=== PATIENT | male | born 1980 | race Caucasian/White ===

== ENCOUNTER 2016-09-01 10:35 | Day surgery (SDC) | payer BC ==
[2016-08-31 16:23] VITALS: BMI 34.4
[~2016-09-01] VITALS: Ht 180.3 cm; Wt 111.7 kg
[2016-09-01] VITALS (15 sets, daily range): BP systolic 107–128; BP diastolic 66–74; PULSE 56–74; RESP 12–23; Ht 180.3 cm; Wt 111.7 kg
[~2016-09-01 10:35] MED LIST: CEFAZOLIN 2 GM/50 ML (PMX) 50 ML IVPB SCH; LIDOCAINE 2% (SDV) 5 ML INJ ONE; SOD CHLORIDE 0.9% 1,000 ML IV SCH; SUCCINYLCHOLINE CHLORIDE 100 MG/5 ML SYG IV ONE
[2016-09-01 11:32] LABS: ADD SCAN DIFF NO
[2016-09-01 11:39] LABS: BASOPHILS % 0.3 % (0.0-2.0); EOSINOPHILS # 0.3 10^3/ul (0.0-0.5); EOSINOPHILS % 4.3 % (0.0-7.0); HEMATOCRIT 44.5 % (42.0-52.0); LYMPHOCYTES # 2.4 10^3/ul (0.8-2.9); LYMPHOCYTES % 35.2 % (15.0-51.0); MEAN CORPUSCULAR HEMOGLOBIN 30.4 pg (29.0-33.0); MEAN CORPUSCULAR HGB CONC 33.7 g/dl (32.0-37.0); MEAN CORPUSCULAR VOLUME 90.1 fl (82.0-101.0); MEAN PLATELET VOLUME 9.3 fl (7.4-10.4); MONOCYTE # 0.4 10^3/ul (0.3-0.9); MONOCYTES % 6.4 % (0.0-11.0); NEUTROPHIL # 3.6 10^3/ul (1.6-7.5); NEUTROPHILS % 53.7 % (39.0-77.0); PLATELET COUNT 266 10^3/UL (140-415); RED BLOOD COUNT 4.94 10^6/ul (4.70-6.10); RED CELL DISTRIBUTION WIDTH 13.2 % (11.5-14.5); WHITE BLOOD COUNT 6.7 10^3/ul (4.8-10.8)
[2016-09-01] MEDS ORDERED: CEFAZOLIN 1 GM INJ ONE (11:49)
[2016-09-01] MEDS ORDERED: FENTAnyl 50 MCG/ML VIAL ONE (11:49)
[2016-09-01] MEDS ORDERED: GLYCOPYRROLATE 0.4 MG INJ ONE (11:49)
[2016-09-01] MEDS ORDERED: NEOSTIGMINE 3 MG/3 ML SYRINGE ONE (11:49)
[2016-09-01] MEDS ORDERED: ROCURONIUM 50 MG INJ ONE (11:49)
[2016-09-01] MEDS ORDERED: PROPOFOL 20 ML ONE (11:49)
[2016-09-01] MEDS ORDERED: MIDAZOLAM 1 MG/ML 2 ML INJ ONE (11:49)
[2016-09-01] MEDS ORDERED: ONDANSETRON 4 MG INJ ONE (11:50)
[2016-09-01] MEDS ORDERED: DEXAMETHASONE 4 MG/ML 1 ML INJ ONE (11:50)
[2016-09-01] MEDS ORDERED: BUPIVACAINE 0.25% (MPF) 30 ML INJ ONE (12:01)
[2016-09-01 12:05] LABS: INR 0.96; PARTIAL THROMBOPLASTIN TIME 27.4 Sec (25.0-35.0); PROTIME 12.8 Sec (12.2-14.2)
[2016-09-01 12:06] LABS: CALCIUM 9.5 mg/dl (8.4-10.2); CREATININE 0.77 mg/dl (0.61-1.24); POTASSIUM 4.3 mmol/L (3.5-5.1)
[2016-09-01] MEDS ORDERED: KETOROLAC 30 MG INJ ONE (12:43)
[2016-09-01] MEDS ORDERED: DIPHENHYDRAMINE 50 MG INJ IV PRN (13:00)
[2016-09-01] MEDS ORDERED: EPHEDrine SULFATE 50 MG/5 ML SYG IV PRN (13:00)
[2016-09-01] MEDS ORDERED: MEPERIDINE 25 MG INJ IV PRN (13:00)
[2016-09-01] MEDS ORDERED: LABETALOL HCL 20MG INJ IV PRN (13:00)
[2016-09-01] MEDS ORDERED: MIDAZOLAM 1 MG/ML 2 ML INJ IV PRN (13:00)
[2016-09-01] MEDS ORDERED: ONDANSETRON 4 MG INJ IV PRN (13:00)
[2016-09-01] MEDS ORDERED: HYDROmorphONE (0.2 MG/ML) 10ML SYG IV PRN ×3 (13:00)
[2016-09-01] MEDS ORDERED: hydrALAzine 20 MG INJ IV PRN (13:00)
[2016-09-01] MEDS ORDERED: FENTAnyl 50 MCG/ML VIAL IV PRN ×3 (13:00)
[2016-09-01] MEDS ORDERED: TRIMETHOBENZAMIDE 100 MG/ML VIAL IM PRN (13:00)
[2016-09-01] MEDS ORDERED: BUPIVACAINE 0.25% (MPF) 30 ML INJ INJ ONE (13:00)
--- NOTE | 2016-09-01 13:14 | OPR ---
Date/Time of Note Date/Time of Note DATE: 09/01/16 TIME: 13:13 Operative Report Procedure Date: Sep 01, 2016 Preoperative Diagnosis recurrent pilonidal cystectomy Postoperative Diagnosis same Operation Performed recurrent pilonidal cystectomy 4x10 cm mass 10 cm incision localized adjacent tissue transfer with the use of skin flaps 40 sq cm defect Surgeon: [place] NAIR Specimens pilonidal cyst [place] NAIR Sep 01, 2016 13:14
[2016-09-01] MEDS ORDERED: HYDROCODONE/APAP (5/325) TAB PO ONE (13:30)
--- NOTE | 2016-09-01 13:32 | OPR ---
DATE OF OPERATION: 09/01/2016 INDICATION: This is a 36-year-old male with recurrent pilonidal cyst. She requests surgical repair . Risks, alternatives, benefits, and personnel were discussed with the patient. The patient expres sed understanding and consents to the operation. PREOPERATIVE DIAGNOSIS: Recurrent pilonidal cyst. POSTOPERATIVE DIAGNOSIS: Recurrent pilonidal cyst. OPERATIONS PERFORMED: 1. Recurrent pilonidal cystectomy with a 10 cm size incision and 10 x 4 cm in size pilonidal cyst. 2. Localized adjacent tissue transfer with the use of skin flaps with a 40 sq cm defect. SURGEON: Vamshi Rouse MD SPECIMEN: Pilonidal cyst. COMPLICATIONS: None. ANESTHESIA: General. PROCEDURE: The patient was taken to the OR and prepped and draped in the usual sterile fashion. [place] rgical time out was performed. IV antibiotics were given. Elliptical incision was made over the ol d pilonidal cyst which has been recurrent. This is excised with a 10 blade and cautery all the way down to bone. There was good hemostasis due to the large tissue defect. Localized adjacent tissue transfer with the use of skin flaps was performed. Multilevel closure with interrupted 2-0 Vicryl a nd skin is closed with interrupted 2-0 nylon. Local anesthesia was injected. Dry dressings were ap plied. Dictated By: VAMSHI RYAN/ABRAN Conf#: [id number] DID#: [id number]
== END 2016-09-01 15:20 | disposition home or self-care (01) ==
LOC: SDS 10:35
PROVIDERS: ATTEND Surgery
DX: L05.91 Pilonidal cyst without abscess (principal); E66.9 Obesity, unspecified; Z68.34 Body mass index [BMI] 34.0-34.9, adult
CPT/HCPCS: 11772; 80048; 85025; 85610; 85730; J0690; J1100; J1170; J1885; J2175; J2250; J2405; J3010; J7999; J2710

== ENCOUNTER 2016-09-04 19:26 | Emergency (ER) | payer BC ==
[~2016-09-04] VITALS: Ht 180.3 cm; Wt 115.0 kg
[2016-09-04 19:32] VITALS: Ht 180.3 cm; Wt 115.0 kg
[2016-09-04 19:50] VITALS: BP 118/69; PULSE 85; RESP 96; TEMP 99.2
[2016-09-04] MEDS ORDERED: HYDROCODONE/APAP (10/325) TAB PO ONE (20:00)
[2016-09-04] MEDS ORDERED: CEPHALEXIN 500 MG CAP PO ONE (20:00)
--- NOTE | 2016-09-04 20:05 | ERD ---
ER Documentation Chief Complaint Date/Time DATE: 09/04/16 TIME: 19:59 Chief Complaint S/P pilodinal cyst removal, Post op pain HPI Patient is a 36-year-old male who is postop day 4 after pilonidal cyst removal. He states that he felt well for the first 2 days postop, but yesterday he was moving around more and started having increased pain at the surgical site. He also reported a low-grade fever of 100.3. He also reported generalized malaise and fatigue. He denies vomiting, cough, dysuria. His states that the wound has been draining a large amount of yellow fluid, and appears more red on the margins. The patient's called Dr. Rouse, who stated that the patient should only come to the ER for a fever greater than 101. The patient was prescribed [place], but has not been taking it. He was not prescribed any antibiotics. ROS All systems reviewed and are negative except as per history of present illness. Medications Home Meds Active Scripts Cephalexin* (Keflex*) 500 Mg Capsule, 500 MG PO QID for 7 Days, CAP Prov:UNRULY CLAROS MD 09/04/16 Allergies Allergies: Coded Allergies: No Known Allergy (Unverified , 09/01/16) PMhx/Soc Past medical history: None Past surgical history: Pilonidal cyst 2 Social history: Denies tobacco, alcohol or illicit drugs History of Surgery: Yes (PILONIDAL CYSTECTOMY MANY YEARS AGO) Anesthesia Reaction: No Hx Neurological Disorder: No Hx Respiratory Disorders: No Hx Cardiac Disorders: No Hx Psychiatric Problems: No Hx Miscellaneous Medical Probl: No Hx Alcohol Use: No Hx Substance Use: No Hx Tobacco Use: Yes (QUIT 5 MOS AGO) FmHx Family History: No coronary disease, No diabetes Physical Exam Vitals Vital Signs Date Time Temp Pulse Resp B/P Pulse Ox O2 Delivery O2 Flow Rate FiO2 09/04/16 19:50 99.2 85 96 118/69 95 Room Air 09/04/16 19:32 99.2 106 96 107/57 99 Physical Exam Const: Alert, no acute distress Head: Atraumatic Eyes: Normal Conjunctiva, no pallor, no icterus ENT: Normal External Ears, Nose and Mouth. Mucous membranes moist Neck: Full range of motion..~ No meningismus. Resp: Clear to auscultation bilaterally, no wheezes, no rales Cardio: Mild tachycardia, regular rhythm, no murmurs Abd: Soft, non tender, non distended. Normal bowel sounds Skin: No petechiae or rashes Back: No midline or flank tenderness. Sutures in gluteal cleft. Minimal erythema surrounding tissue. Expressible serosanguineous fluid, no purulent drainage. No significant induration or fluctuance. Ext: No cyanosis, or edema Neur: Awake and alert Psych: Normal Mood and Affect Results 24 hrs Current Medications Medications (Trade) Dose Ordered Sig/Manpreet Route PRN Reason Start Time Stop Time Status Last Admin Dose Admin Cephalexin (Keflex) 500 mg ONCE ONCE PO 09/04/16 20:00 09/04/16 20:01 DC 09/04/16 20:08 Acetaminophen/ Hydrocodone Bitart ([place] ()) 1 tab ONCE ONCE PO 09/04/16 20:00 09/04/16 20:01 DC 09/04/16 20:11 Procedures/MDM MDM: Patient is a 36-year-old male who presents with serosanguineous drainage and pain at the surgical site of a pilonidal cyst resection 4 days ago. He also has low-grade fever. On exam there is no evidence of abscess, no purulent drainage. 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 I spoke with Dr. Rouse, who agrees that the patient does not require emergent imaging at this time, and that imaging is unlikely to be able to distinguish between postoperative seroma and abscess. Clinically there is no evidence of abscess, and there is a high suggestion of seroma. The patient does not have significant signs of sepsis. I discussed options for management with Dr. Rouse, and he agreed with the plan to discharge the patient on Keflex and have him follow-up in clinic in 2 days. I also advised the patient that should he experience any new or worsening symptoms , he should return to the emergency department during my shift tomorrow. The patient has a prescription for [place] but has not been using it. I encouraged him to use it if he experiences significant pain. Departure Diagnosis: Primary Impression: Seroma Additional Impressions: Cellulitis Site of cellulitis: buttock Qualified Code: L03.317 - Cellulitis of buttock Postoperative pain Condition: Stable WYLER,UNRULY MD Sep 04, 2016 20:05
[2016-09-04] MEDS ORDERED: CEPH-443 PO (20:33)
== END 2016-09-04 20:46 | disposition home or self-care (01) ==
LOC: E/R 19:26
DX: M96.840 Postprocedural hematoma of a musculoskeletal structure following a musculoskeletal system procedure (principal); L03.317 Cellulitis of buttock; Z87.891 Personal history of nicotine dependence
CPT/HCPCS: 99283

== ENCOUNTER → 2017-11-23 | Outpatient (CLI) | END | disposition home or self-care (01) ==